=== PATIENT | female | born 1990 | race Caucasian/White ===

== ENCOUNTER 2016-07-18 21:37 | Emergency (ER) | payer SELFPAY ==
[~2016-07-18] VITALS: Ht 162.6 cm; Wt 78.0 kg
[~2016-07-18 21:37] MED LIST: AUGM875T PO; HYDR-3533 PO
[2016-07-18 21:41] VITALS: BP 183/130; PULSE 108; RESP 38; TEMP 98.2; O2SAT 100
[2016-07-18] MEDS ORDERED: ceFAZolin INJ 1,000 MG in ceFAZolin 2 GM PREMIX 50 ML IV ONE (21:45)
[2016-07-18] MEDS ORDERED: SODIUM CHLOR 0.9% 1000 ML INJ 1,000 ML IV SCH (21:45)
--- NOTE | 2016-07-18 21:55 | PD ---
HPI Chief Complaint: Fall Time Seen by Provider: 21:45 Travel History International Travel<30 days: No Contact w/Intl Traveler<30days: No Traveled to known affect area: No History of Present Illness HPI The patient is 25 year old female who presents to the [facility] emergency department with a history of reportedly tripping and striking her head on the corner of a piece of furniture earlier this evening. The patient reports that she did have a loss of consciousness. She reports that she then went over to her friend's place. She began to have waxing and waning mentation, therefore ambulance services were called. The patient reports that she has been drinking alcohol this evening. She reports that she had 1 cup of from. She denies having any neck pain, paresthesias, weakness of her extremities. She denies having any extremity pain. The patient denies any recent fevers, cough, congestion, chest pain, shortness of breath, abdominal pain, vomiting, diarrhea , or urinary symptoms. LMP: Unsure of the timing of last menstrual cycle PFSH Past Medical History Narrative Medical The patient's past medical history is significant for ovarian cysts, irregular menstrual cycles. Reproductive: Yes (OVARIAN CYST) Tetanus Vaccination: < 5 Years ?: Not Past Surgical History Narrative Surgical The patient's past surgical history is reportedly none. Surgical History: No Previous Surgery Social History Alcohol Use: Yes (occasionally) Tobacco Use: No Substance Use: No Allergies-Medications (Allergen,Severity, Reaction): Coded Allergies: Codeine (Verified Allergy, Severe, 07/18/16) Tramadol (Verified Allergy, Severe, 07/18/16) Reported Meds & Prescriptions Reported Meds & Active Scripts Active Augmentin (Amoxicillin & Pot Clavulanate) 875 Mg Tab 875 Mg PO BID 10 Days Lortab 5 mg/325 mg (Hydrocodone/Acetaminophen 5 mg/325 mg) 1 Tab 1 Tab PO Q6H PRN Review of Systems Except as stated in HPI: all other systems reviewed are Neg General / Constitutional: No: Fever Eyes: No: Visual changes HENT: Positive: Headaches, No: Rhinorrhea, Congestion, Neck Stiffness, Neck Pain Cardiovascular: No: Chest Pain or Discomfort Respiratory: No: Shortness of Breath Gastrointestinal: No: Abdominal Pain Genitourinary: No: Dysuria Musculoskeletal: No: Pain Skin: No Rash Neurologic: Positive: Headache, Change in Mentation, No: Weakness, Focal Abnormalities, Slurred Speech, Sensory Disturbance Psychiatric: No: Depression Endocrine: No: Polydipsia Hematologic/Lymphatic: No: Easy Bruising Physical Exam Narrative General: The patient is a well-developed well-nourished female, anxious appearing on examination. The patient reports that she is afraid of hospitals. The patient is brought in on a back board in full c-spine immobilization by emergency services. Head and Neck exam: Head is normocephalic, evidence of injury to the right side of the forehead with a hematoma with overlying abrasion there is tenderness to the side. There is no other facial bone tenderness or increased facial bone mobility noted on palpation. Eyes: EOMI, pupils are equal round and reactive to light. Nose: Midline septum with pink mucous membranes Mouth: Dentition unremarkable. Moist mucus membranes. Posterior oropharynx is not erythematous. No tonsillar hypertrophy. Uvula midline. Airway patent. Neck: The patient is immobilized in a cervical collar. No tracheal deviation. The trachea appears midline. Cardiovascular: Sinus tachycardia in the low 100s without murmurs, gallops, or rubs. Lungs: Clear to auscultation bilaterally. No wheezes, rhonchi, or rales. No chest wall tenderness to palpation. No erythema or ecchymosis noted. No crepitus , step off, or flail segment noted. Abdomen: Soft, without tenderness to palpation in all 4 quadrants of the abdomen. No guarding, rebound, or rigidity. Negative [place] sign. Extremities: No clubbing, cyanosis, or edema. 2+ pulses in all 4 extremities. No extremity tenderness or deformity noted on palpation or passive/ active range of motion. Back: The patient was log rolled off the backboard. No spinous process tenderness to palpation. No costovertebral angle tenderness to palpation. No erythema or ecchymosis. Neurologic Exam: Cranial nerves 2-12 were intact on exam. Strength is 5/5 in all 4 extremities. No sensory deficits noted. The patient has tachypnea and sinus tachycardia. The patient reports feeling anxious. She reports that she hates hospitals. The patient is oriented to person, place, time, situation. Skin Exam: No rash noted. Intact skin that is warm and dry. Data Data Last Documented VS Vital Signs Date Time Temp Pulse Resp B/P Pulse Ox O2 Delivery O2 Flow Rate FiO2 07/18/16 22:12 100 Room Air 07/18/16 22:12 91 20 175/69 07/18/16 21:41 98.2 Orders Basic Metabolic Panel (Bmp) (07/18/16 21:45) Complete Blood Count With Diff (07/18/16 21:45) Prothrombin Time / Inr (Pt) (07/18/16 21:45) Act Partial Throm Time (Ptt) (07/18/16 21:45) Alcohol (Ethanol) (07/18/16 21:45) Urinalysis - C+S If Indicated (07/18/16 21:45) Drug Screen, Random Urine (07/18/16 21:45) Ct Brain W/O Iv Contrast(Rout) (07/18/16 21:45) Ct Cerv Spine W/O Contrast (07/18/16 21:45) Iv Access Insert/Monitor (07/18/16 21:45) Ecg Monitoring (07/18/16 21:45) Oximetry (07/18/16 21:45) Cefazolin Inj (Ancef Inj) (07/18/16 21:45) Sodium Chlor 0.9% 1000 Ml Inj (Ns 1000 M (07/18/16 21:45) Electrocardiogram (07/18/16 21:45) Thyroid Stimulating Hormone (07/18/16 21:45) Chest, Single Ap (07/18/16 21:45) Ed Urine Pregnancytest Poc (07/18/16 21:45) Cefazolin 2 Gm Premix (Ancef 2 Gm Premix (07/18/16 22:07) Ondansetron Inj (Zofran Inj) (07/18/16 22:15) Acetaminophen (Tylenol) (07/18/16 23:30) Labs Laboratory Tests Test 07/18/16 07/18/16 21:55 23:20 White Blood Count 11.4 TH/MM3 Red Blood Count 4.92 MIL/MM3 Hemoglobin 14.9 GM/DL Hematocrit 44.6 % Mean Corpuscular Volume 90.7 FL Mean Corpuscular Hemoglobin 30.3 PG Mean Corpuscular Hemoglobin 33.4 % Concent Red Cell Distribution Width 12.2 % Platelet Count 274 TH/MM3 Mean Platelet Volume 9.2 FL Neutrophils (%) (Auto) 59.5 % Lymphocytes (%) (Auto) 31.8 % Monocytes (%) (Auto) 6.9 % Eosinophils (%) (Auto) 0.7 % Basophils (%) (Auto) 1.1 % Neutrophils # (Auto) 6.8 TH/MM3 Lymphocytes # (Auto) 3.6 TH/MM3 Monocytes # (Auto) 0.8 TH/MM3 Eosinophils # (Auto) 0.1 TH/MM3 Basophils # (Auto) 0.1 TH/MM3 CBC Comment DIFF FINAL Differential Comment Prothrombin Time 10.4 SEC Prothromb Time International 0.9 RATIO Ratio Activated Partial 26.9 SEC Thromboplast Time Sodium Level 141 MEQ/L Potassium Level 4.0 MEQ/L Chloride Level 106 MEQ/L Carbon Dioxide Level 29.3 MEQ/L Anion Gap 6 MEQ/L Blood Urea Nitrogen 12 MG/DL Creatinine 0.86 MG/DL Estimat Glomerular Filtration 82 ML/MIN Rate Random Glucose 110 MG/DL Calcium Level 8.9 MG/DL Thyroid Stimulating Hormone 2.200 uIU/ML 3rd Gen Ethyl Alcohol Level 55 MG/DL Urine Color LIGHT-YELLOW Urine Turbidity CLEAR Urine pH 7.0 Urine Specific [place] 1.006 Urine Protein NEG mg/dL Urine Glucose (UA) NEG mg/dL Urine Ketones NEG mg/dL Urine Occult Blood NEG Urine Nitrite NEG Urine Bilirubin NEG Urine Urobilinogen LESS THAN 2.0 MG/DL Urine Leukocyte Esterase NEG Urine RBC 2 /hpf Urine WBC LESS THAN 1 /hpf Urine Squamous Epithelial 1 /hpf Cells Microscopic Urinalysis Comment CULT NOT INDICATED MDM Medical Decision Making Medical Screen Exam Complete: Yes Emergency Medical Condition: Yes Medical Record Reviewed: Yes Differential Diagnosis Altered mentation related to head injury, versus alcohol intoxication, versus psychiatric disorder Narrative Course During the course of the patients emergency department visit, the patients history, examination, and differential diagnosis were reviewed with the patient. The patient had IV access obtained and blood work sent for analysis. The patient was placed on a case monitor with oximetry and blood pressure monitoring. The patient was log rolled off the backboard. A CT scan of the head, neck has been ordered. A chest x-ray was ordered. An EKG was done which shows a sinus tachycardia rate of 103, no other acute abnormality. The patient was provided normal saline 1 L IV fluid bolus, Ancef 1 g IV. The patient reports that her tetanus was last updated within the last 2 years. The patients laboratory studies were reviewed and remarkable for White count is 11.4, hemoglobin 14.9, platelets 274 with a normal differential. PT PTT unremarkable, basic metabolic profile is remarkable for a GFR of 82, glucose 110 , TSH 2.2, alcohol level LV, urinalysis is unremarkable. Radiology studies were reviewed and remarkable for a CT scan of the head and neck that were read as negative by the reading radiologist for acute abnormality. Chest x-ray showed no acute abnormality. The patient's cervical collar was removed. The patient was able to get up and walk to the bathroom. The patient is resting comfortably and feels better, is alert and in no distress. The patients results and examination findings were discussed with the patient. The repeat examination is unremarkable and benign. The history, exam, diagnostic testing, and current condition do not suggest any significant pathology to warrant further testing, continued ED treatment, admission, or surgical evaluation at this point. The vital signs have been stable. The patient does not have uncontrollable pain, intractable vomiting, or other significant symptoms. The patient's condition is stable and appropriate for discharge. The patient will pursue further outpatient evaluation with a primary care physician or other designated or consulting physician as indicated in the discharge instructions. The patient expressed understanding and was agreeable with this plan. Diagnosis Primary Impression: Head injury Qualified Code: S09.90XA - Head injury, initial encounter Referrals: Primary Care Physician 2 days Patient Instructions: General Instructions, Head Injury (ED) Departure Forms: Tests/Procedures, Work Release Enter return to work date: Jul 21, 2016 Additional Instructions: The patient is instructed to take Tylenol as written on the package as needed for discomfort. The patient is instructed to ice the area of swelling for 15 minutes 3-4 times per day. Med/Other Pt SpecificInfo: Prescription(s) given, No Meds Exist/No RX given Scripts Ondansetron Odt (Zofran Odt)4 Mg Tab4 Mg SL Q6HR PRN (Nausea/Vomiting) #10 TAB Ref 0 Prov:Alyssa Akers MD 07/18/16 Disposition: 01 DISCHARGE HOME Condition: Stable Alyssa Akers MD Jul 18, 2016 21:54
[2016-07-18] MEDS ORDERED: ceFAZolin 2 GM PREMIX 50 ML ONE (22:07)
[2016-07-18 22:12] VITALS: BP 175/69; PULSE 91; RESP 20; O2SAT 100
--- NOTE | 2016-07-18 22:13 | RADRPT ---
EXAM DATE/TIME: 07/18/2016 21:45 [facility] COMPARISON: No previous studies available for comparison. INDICATIONS : Trauma. Tripped and fell over her cat hitting her head on her dresser today. MEDICAL HISTORY : None. SURGICAL HISTORY : None. ENCOUNTER: Initial ACUITY: 1 day PAIN SCORE: 0/10 LOCATION: Bilateral chest FINDINGS: A single view of the chest demonstrates the lungs to be symmetrically aerated without evidence of mas s, infiltrate or effusion. The cardiomediastinal contours are unremarkable. Osseous structures are intact. CONCLUSION: Normal examination. James Morse MD on July 18, 2016 at 22:11 Board Certified Radiologist. This report was verified electronically.
[2016-07-18] MEDS ORDERED: ONDANSETRON HCL 4 MG/2 ML VIAL IV ONE (22:15)
[2016-07-18 22:23] LABS: AUTOMATED NEUTROPHIL # 6.8 TH/MM3 (1.8-7.7); BASOPHIL # 0.1 TH/MM3 (0-0.2); BASOPHIL % 1.1 % (0.0-2.0); EOSINOPHIL # 0.1 TH/MM3 (0-0.4); EOSINOPHIL % 0.7 % (0.0-4.0); HEMATOCRIT 44.6 % (35.0-46.0); HEMO FLAGS DIFF FINAL; LYMPH % 31.8 % (9.0-44.0); LYMPHOCYTE # 3.6 TH/MM3 (1.0-4.8); MEAN CELL VOLUME 90.7 FL (80.0-100.0); MEAN CORPUSCULAR HEMOGLOBIN 30.3 PG (27.0-34.0); MEAN CORPUSCULAR HGB CONC 33.4 % (32.0-36.0); MONO % 6.9 % (0.0-8.0); NEUT % 59.5 % (16.0-70.0); PLATELET COUNT 274 TH/MM3 (150-450); RED BLOOD COUNT 4.92 MIL/MM3 (4.00-5.30); RED CELL DISTRIBUTION WIDTH 12.2 % (11.6-17.2); WHITE BLOOD COUNT 11.4 TH/MM3 (4.0-11.0)
[2016-07-18 22:38] LABS: APTT (PATIENT) 26.9 SEC (24.3-30.1); INTERNATIONAL NORMALIZED RATIO 0.9 RATIO; PROTHROMBIN TIME - PATIENT 10.4 SEC (9.8-11.6)
--- NOTE | 2016-07-18 22:39 | RADRPT ---
EXAM DATE/TIME: 07/18/2016 22:31 [facility] COMPARISON: No previous studies available for comparison. INDICATIONS : Fall with head trauma. RADIATION DOSE: 32.26 CTDIvol (mGy) MEDICAL HISTORY : None SURGICAL HISTORY : None. ENCOUNTER: Initial ACUITY: 1 day PAIN SCALE: 7/10 LOCATION: cranial TECHNIQUE: Multiple contiguous axial images were obtained of the head. Using automated exposure control and adj ustment of the mA and/or kV according to patient size, radiation dose was kept as low as reasonably a chievable to obtain optimal diagnostic quality images. FINDINGS: CEREBRUM: The ventricles are normal for age. No evidence of midline shift, mass lesion, hemorrhage or acute in farction. No extra-axial fluid collections are seen. POSTERIOR FOSSA: The cerebellum and brainstem are intact. The 4th ventricle is midline. The cerebellopontine angle i s unremarkable. EXTRACRANIAL: The visualized portion of the orbits is intact. SKULL: The calvaria is intact. No evidence of skull fracture. CONCLUSION: Normal examination. James Morse MD on July 18, 2016 at 22:37 Board Certified Radiologist. This report was verified electronically.
--- NOTE | 2016-07-18 22:44 | RADRPT ---
EXAM DATE/TIME: 07/18/2016 22:31 [facility] COMPARISON: No previous studies available for comparison. INDICATIONS : Fall with head trauma and neck pain. RADIATION DOSE: 20.80 CTDIvol (mGy) MEDICAL HISTORY : None SURGICAL HISTORY : None. ENCOUNTER: Initial ACUITY: 1 day PAIN SCALE: 7/10 LOCATION: neck TECHNIQUE: Volumetric scanning of the cervical spine was performed. Multiplanar reconstructions in the sagittal, coronal and oblique axial planes were performed. Using automated exposure control and adjustment o f the mA and/or kV according to patient size, radiation dose was kept as low as reasonably achievable to obtain optimal diagnostic quality images. FINDINGS: VERTEBRAE: Normal vertebral body height. ALIGNMENT: No evidence of subluxation. C2-C3: The bony spinal canal is normal in size. No evidence of disc bulge or herniation. The neural forami na are bilaterally patent. C3-C4: The bony spinal canal is normal in size. No evidence of disc bulge or herniation. The neural forami na are bilaterally patent. C4-C5: The bony spinal canal is normal in size. No evidence of disc bulge or herniation. The neural forami na are bilaterally patent. C5-C6: The bony spinal canal is normal in size. No evidence of disc bulge or herniation. The neural forami na are bilaterally patent. C6-C7: The bony spinal canal is normal in size. No evidence of disc bulge or herniation. The neural forami na are bilaterally patent. C7-T1: The bony spinal canal is normal in size. No evidence of disc bulge or herniation. The neural forami na are bilaterally patent. CONCLUSION: Normal examination. James Morse MD on July 18, 2016 at 22:42 Board Certified Radiologist. This report was verified electronically.
[2016-07-18 22:46] LABS: BICARBONATE 29.3 MEQ/L (21.0-32.0)
[2016-07-18] MEDS ORDERED: ACETAMINOPHEN 325 MG TAB PO ONE (23:30)
[2016-07-18 23:39] LABS: BLOOD, URINE NEG (NEG); GLUCOSE,URINE NEG (NEG); KETONE, URINE NEG (NEG); NITRITE,URINE NEG (NEG); SQUAMOUS EPITHELIAL CELL URINE 1 /hpf (0-5); URINE COLOR LIGHT-YELLOW (YELLW/STRAW)
[2016-07-18 23:42] LABS: COMMENT (UR) CULT NOT INDICATED; CULTURE IF INDICATED CULT NOT INDICATED
[2016-07-18 23:46] LABS: AMPHETAMINE, URINE NEG (NEG); BARBITURATES, URINE NEG (NEG); COCAINE, URINE NEG (NEG)
[2016-07-18] MEDS ORDERED: ZOFR4TAB3 SL (23:57)
[2016-07-19 00:11] VITALS: BP 133/60
--- NOTE | 2016-07-19 22:33 | EKG ---
Date Performed: 07/18/2016 Time Performed: 22:20:27 PTAGE: 25 years EKG: SINUS TACHYCARDIA ABNORMAL RHYTHM ECG NO PREVIOUS TRACING DOCTOR: Alex Mijares Interpretating Date/Time 07/19/2016 22:29:22
== END 2016-07-19 00:17 | disposition home or self-care (01) ==
LOC: NEPE 21:37
DX: S09.90XA Unspecified injury of head, initial encounter (principal); R00.0 Tachycardia, unspecified; W01.190A Fall on same level from slipping, tripping and stumbling with subsequent striking against furniture, initial encounter
CPT/HCPCS: 70450; 71010; 72125; 80048; 80307; 80320; 81001; 84443; 84703; 85025; 85610; 85730; 93005; 96365; 96375; 99285; J0690; J2405; J7030

== ENCOUNTER 2016-12-07 02:49 | Emergency (ER) | payer OTHER ==
[~2016-12-07] VITALS: Ht 160 cm; Wt 90.0 kg
[~2016-12-07 02:49] MED LIST changes: +ZOFR4TAB3 SL
[2016-12-07 02:59] VITALS: BP 135/84; PULSE 113; RESP 20; TEMP 98.3; O2SAT 98
--- NOTE | 2016-12-07 03:46 | PD ---
HPI Chief Complaint: Psychiatric Symptoms Time Seen by Provider: 03:42 Travel History International Travel<30 days: No Contact w/Intl Traveler<30days: No Traveled to known affect area: No History of Present Illness HPI 26-year-old female presents to the emergency department as a Snyder act. Patient states she was drinking alcohol and she thinks she must of said something like she wanted to harm herself or not live anymore she doesn't really recall. Patient states she is not suicidal has not been having suicidal ideation or homicidal ideation. Patient has no desire to harm herself or anyone else and does not have a plan to do so. Patient has remote history of asthma does have history of anxiety. Patient's last period was normal for her and denies . Patient is 0 para 0. Patient's had no recent febrile illness or respiratory illness. Patient denies any pain. PFSH Past Medical History Narrative Medical Asthma anxiety ovarian cysts; no surgery; alcohol use marijuana use; nursing notes reviewed Diminished Hearing: No Reproductive: Yes (OVARIAN CYST) Influenza Vaccination: No ?: Not LMP: 3 WEEKS AGO Past Surgical History Surgical History: No Previous Surgery Social History Alcohol Use: Yes (OCCASIONALLY) Tobacco Use: No Substance Use: Yes (MARIJANA OCCASIONALLY) Allergies-Medications (Allergen,Severity, Reaction): Coded Allergies: Codeine (Verified Allergy, Severe, 12/07/16) Tramadol (Verified Allergy, Severe, 12/07/16) Reported Meds & Prescriptions Reported Meds & Active Scripts Active Review of Systems Except as stated in HPI: all other systems reviewed are Neg General / Constitutional: No: Fever, Chills HENT: No: Congestion Cardiovascular: No: Chest Pain or Discomfort Respiratory: No: Shortness of Breath Gastrointestinal: No: Abdominal Pain Genitourinary: No: Flank Pain Musculoskeletal: No: Myalgias, Arthralgias Skin: No Rash Neurologic: No: Weakness Psychiatric: Positive: Anxiety, Substance Abuse (marijuana), No: Depression, Suicidal Ideations, Homicidal Ideation Hematologic/Lymphatic: No: Lymph Node Enlargement Physical Exam Narrative GENERAL: Well-developed well-nourished female in no acute distress no respiratory distress SKIN: Warm and dry. HEAD: Atraumatic. Normocephalic. EYES: Pupils equal and round. No scleral icterus. No injection or drainage. ENT: No nasal bleeding or discharge. Mucous membranes pink and moist. NECK: Trachea midline. No JVD. CARDIOVASCULAR: Regular rate and rhythm. RESPIRATORY: No accessory muscle use. Clear to auscultation. Breath sounds equal bilaterally. GASTROINTESTINAL: Abdomen soft, non-tender, nondistended. Hepatic and splenic margins not palpable. MUSCULOSKELETAL: Extremities without clubbing, cyanosis, or edema. No obvious deformities. NEUROLOGICAL: Awake and alert. No obvious cranial nerve deficits. Motor grossly within normal limits. Five out of 5 muscle strength in the arms and legs. Normal speech. PSYCHIATRIC: Appropriate mood and affect; insight and judgment normal. Data Data Last Documented VS Vital Signs Date Time Temp Pulse Resp B/P Pulse Ox O2 Delivery O2 Flow Rate FiO2 12/07/16 03:06 113 19 12/07/16 02:59 98.3 135/84 98 Orders Complete Blood Count With Diff (12/07/16 03:42) Comprehensive Metabolic Panel (12/07/16 03:42) Psych Screen (12/07/16 03:42) Drug Screen, Random Urine (12/07/16 03:42) Alcohol (Ethanol) (12/07/16 03:42) Ed Urine Pregnancytest Poc (12/07/16 03:42) Labs Laboratory Tests Test 12/07/16 03:50 White Blood Count 8.8 TH/MM3 Red Blood Count 4.77 MIL/MM3 Hemoglobin 15.0 GM/DL Hematocrit 42.8 % Mean Corpuscular Volume 89.6 FL Mean Corpuscular Hemoglobin 31.5 PG Mean Corpuscular Hemoglobin 35.1 % Concent Red Cell Distribution Width 12.5 % Platelet Count 258 TH/MM3 Mean Platelet Volume 9.6 FL Neutrophils (%) (Auto) 73.2 % Lymphocytes (%) (Auto) 20.8 % Monocytes (%) (Auto) 5.1 % Eosinophils (%) (Auto) 0.2 % Basophils (%) (Auto) 0.7 % Neutrophils # (Auto) 6.4 TH/MM3 Lymphocytes # (Auto) 1.8 TH/MM3 Monocytes # (Auto) 0.4 TH/MM3 Eosinophils # (Auto) 0.0 TH/MM3 Basophils # (Auto) 0.1 TH/MM3 CBC Comment DIFF FINAL Differential Comment Sodium Level 142 MEQ/L Potassium Level 3.9 MEQ/L Chloride Level 106 MEQ/L Carbon Dioxide Level 26.6 MEQ/L Anion Gap 9 MEQ/L Blood Urea Nitrogen 11 MG/DL Creatinine 0.86 MG/DL Estimat Glomerular Filtration 81 ML/MIN Rate Random Glucose 163 MG/DL Calcium Level 8.6 MG/DL Total Bilirubin 0.2 MG/DL Aspartate Amino Transf 16 U/L (AST/SGOT) Alanine Aminotransferase 28 U/L (ALT/SGPT) Alkaline Phosphatase 133 U/L Total Protein 7.3 GM/DL Albumin 3.4 GM/DL Urine Opiates Screen NEG Urine Barbiturates Screen NEG Urine Amphetamines Screen NEG Urine Benzodiazepines Screen NEG Urine Cocaine Screen POS Urine Cannabinoids Screen NEG Ethyl Alcohol Level 63 MG/DL MDM Medical Decision Making Medical Screen Exam Complete: Yes Emergency Medical Condition: Yes Medical Record Reviewed: Yes Interpretation(s) CBC & BMP Diagram 12/07/16 03:50 Vital Signs Date Time Temp Pulse Resp B/P Pulse Ox O2 Delivery O2 Flow Rate FiO2 12/07/16 03:06 113 19 12/07/16 02:59 98.3 113 20 135/84 98 uds: Cocaine Serum alcohol: 63, elevated Differential Diagnosis Alcohol intoxication, substance ingestion, mood disorder, depression, suicidal ideation Narrative Course Patient with Snyder act denying any suicidal or homicidal ideations states he was drinking too much alcohol and does not recall exactly what she said that denies wanting to harm herself or others. Snyder act was placed by Police Department after patient reportedly sent texts to friends indicating that she was depressed and wanted to harm herself. Specimens collected and sent for resulting. As of 5 AM patient is medically cleared for mental health/psych screening Diagnosis Primary Impression: Suicidal ideation Additional Impressions: Alcohol ingestion Cocaine use Toshia Alexandre MD Dec 07, 2016 03:46 Toshia Alexandre MD Dec 07, 2016 03:46
[2016-12-07 04:13] LABS: AUTOMATED NEUTROPHIL # 6.4 TH/MM3 (1.8-7.7); BASOPHIL # 0.1 TH/MM3 (0-0.2); BASOPHIL % 0.7 % (0.0-2.0); EOSINOPHIL % 0.2 % (0.0-4.0); HEMATOCRIT 42.8 % (35.0-46.0); HEMO FLAGS DIFF FINAL; LYMPH % 20.8 % (9.0-44.0); LYMPHOCYTE # 1.8 TH/MM3 (1.0-4.8); MEAN CELL VOLUME 89.6 FL (80.0-100.0); MEAN CORPUSCULAR HEMOGLOBIN 31.5 PG (27.0-34.0); MEAN CORPUSCULAR HGB CONC 35.1 % (32.0-36.0); MONO % 5.1 % (0.0-8.0); NEUT % 73.2 % (16.0-70.0); PLATELET COUNT 258 TH/MM3 (150-450); RED BLOOD COUNT 4.77 MIL/MM3 (4.00-5.30); RED CELL DISTRIBUTION WIDTH 12.5 % (11.6-17.2); WHITE BLOOD COUNT 8.8 TH/MM3 (4.0-11.0)
[2016-12-07 04:27] LABS: AMPHETAMINE, URINE NEG (NEG); BARBITURATES, URINE NEG (NEG); COCAINE, URINE POS (NEG)
[2016-12-07 04:37] LABS: ALKALINE PHOSPHATASE 133 U/L (45-117); TOTAL BILIRUBIN ADULT 0.2 MG/DL (0.2-1.0)
[2016-12-07 04:39] LABS: ALT (GPT) 28 U/L (10-53); ANION GAP 9 MEQ/L (5-15); AST (GOT) 16 U/L (15-37); BICARBONATE 26.6 MEQ/L (21.0-32.0); BLOOD UREA NITROGEN 11 MG/DL (7-18); CHLORIDE 106 MEQ/L (98-107); GLOMERULAR FILTRATION RATE 81 ML/MIN (>89); POTASSIUM 3.9 MEQ/L (3.5-5.1); SODIUM (NA) 142 MEQ/L (136-145)
[2016-12-07 15:16] VITALS: BP 152/81; PULSE 101; RESP 18; O2SAT 98
[2016-12-07 17:34] VITALS: BP 152/81; PULSE 101; RESP 18; O2SAT 98
--- NOTE | 2017-01-02 12:32 | PD ---
History of Present Illness Chief Complaint: Psychiatric Symptoms Travel History International Travel<30 Days: No Contact w/Intl Traveler<30days: No Known affected area: No Legal Status Legal Status: Snyder Act Snyder Act Signed By: Aries Snyder Act Comment: BA signed by: Mindy WILD, Kimberly Bang#[id number], Case #[id number] History of Present Illness: Patient seen by this physician due to Snyder act for making suicidal threats while intoxicated. Patient is no longer intoxicated. She is verbally jacy for safety. She denies any suicidal or homicidal ideation, plan or intent. Her cognition is intact and she exhibits no psychotic symptoms. She does describe some monetary and family stressors. However, she is not interested in treatment for alcohol abuse at this time. PFSH Past Medical History Medical History: Denies Significant Hx Diminished Hearing: No Reproductive: Yes (OVARIAN CYST) Influenza Vaccination: No ?: Not LMP: 3 WEEKS AGO Past Surgical History Surgical History: No Previous Surgery Psychiatric History Psychiatric History Hx Psychiatric Treatment: Denies History of Inpatient Treatment: No Social History Hx Alcohol Use: Yes (OCCASIONALLY) Hx Tobacco Use: No Hx Substance Use: No (Admits to smoking marijuana, denies cocaine use) Hx of Substance Use Treatment: No Allergies-Medications (Allergen,Severity, Reaction): Coded Allergies: Codeine (Verified Allergy, Severe, 12/07/16) Tramadol (Verified Allergy, Severe, 12/07/16) Reported Meds & Prescriptions Reported Meds & Active Scripts Active Review of Systems Except as stated in HPI: all other systems reviewed are Neg Exam Alert: Yes Branch: Person, Place, Date, Situation Mood: Calm Affect: Appropriate Speech: Clear Eye Contact: Normal Memory Intact: Immediate, Recent, Remote Insight/Judgement Adequate MDM Medical Decision Making Medical Record Reviewed: Yes Assessment/Plan Snyder act being lifted. This physician does not feel patient meets criteria for Snyder act or inpatient psychiatric treatment. Patient encouraged to go to [facility] for treatment of alcohol abuse. Also encouraged to attend [facility] for cocaine abuse. Diagnosis Primary Impression: Alcohol abuse Additional Impression: Cocaine use Departure Forms: Tests/Procedures Patient Instructions: General Instructions, Abuse of Alcohol (ED), Medical Clearance for Psychiatric Care (ED) Additional Instructions: DX: Alcohol Abuse Please return to ED if symptoms worsen. Disposition: 01 DISCHARGE HOME Condition: Stable Problem Qualifiers Sean Chahal MD Jan 02, 2017 12:32
== END 2016-12-07 17:16 | disposition home or self-care (01) ==
LOC: NEPC 02:49 → NEPJ 17:16
DX: R45.851 Suicidal ideations (principal); F10.10 Alcohol abuse, uncomplicated; F14.10 Cocaine abuse, uncomplicated; Y90.3 Blood alcohol level of 60-79 mg/100 ml
CPT/HCPCS: 80053; 80307; 84703; 85025; 99284